=== PATIENT | male | born 1960 | race Caucasian/White ===

== ENCOUNTER 2019-11-27 01:13 | Emergency (ER) | payer BC, OTHER ==
[2019-11-27] MEDS ORDERED: KETOROLAC 60 MG/2 ML VIAL IM STA (01:52)
[2019-11-27] MEDS ORDERED: DEXAMETHASONE 10 MG/ML VIAL PO STA (01:52)
[2019-11-27] MEDS ORDERED: CHERRY SYRUP 10 ML UDC PO ONE (01:52)
--- NOTE | 2019-11-27 02:12 | ED Physician Documentation ---
PD HPI UPPER EXT INJURY - Stated complaint Stated Complaint: RT SHOULDER PX - Chief complaint Chief Complaint: General - History obtained from History obtained from: Patient, Family - History of Present Illness Location: Right, Shoulder Type of injury: Other (heavy lift) Where injury occurred: Work Timing - onset: Enter time (1600), Today Timing - duration: Hours Timing - details: Abrupt onset, Still present Improved by: Rest, Immobilization Worsened by: Moving, Palpating Associated symptoms: No: Weakness, Numbness, Tingling, Swelling Contributing factors: Work related. 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 He has had increasing pain since then and he has not had much relief with the use of ibuprofen. He has not had this happen to him previously and he denies any specific injury to the area today. He does do heavy lifting continuously and he did lift a heavy bag today which he carried with both arms even though his told him not to pick this up. He did not recall an injury at the time. He feels the pain is most centered at the edge of the shoulder. Review of Systems Constitutional: denies: Fever Eyes: denies: Decreased vision Ears: denies: Ear pain Nose: denies: Congestion Throat: denies: Sore throat Cardiac: denies: Chest pain / pressure, Palpitations Respiratory: denies: Dyspnea, Cough GI: denies: Abdominal Pain, Constipation, Diarrhea : denies: Dysuria PD PAST MEDICAL HISTORY - Past Medical History Past Medical History: No - Past Surgical History Past Surgical History: No - Present Medications Home Medications: Ambulatory Orders Medication Instructions Recorded Confirmed No Known Home Medications 11/27/19 11/27/19 - Allergies Allergies/Adverse Reactions: Allergies Allergy/AdvReac Type Severity Reaction Status Date / Time No Known Drug Allergies Allergy Verified 11/27/19 01:25 - Social History Does the pt smoke?: Yes Smoking Status: Current every day smoker Does the pt drink ETOH?: Yes Does the pt have substance abuse?: Yes Substance Use and Type: Marijuana - Immunizations Immunizations are current?: Yes - POLST Patient has POLST: No PD ED PE NORMAL - Vitals Vital signs reviewed: Yes (hypertnesive ) - General General: Alert and oriented X 3, Well developed/nourished, Other (appears to be in pain just trying to take his shirt off) - HEENT HEENT: Atraumatic, PERRL, EOMI - Respiratory Respiratory: No respiratory distress - Derm Derm: Normal color, Warm and dry, No rash - Extremities Extremities: No deformity, No edema, Other (There is specific point tenderness to the right shoulder over the biceps tendon and with any ROM testing. distal n/v is intact. ) - Neuro Neuro: Alert and oriented X 3, vinyl dipper 2-12 intact, No motor deficit, No sensory deficit, Normal speech Eye Opening: Spontaneous Motor: Obeys Commands Verbal: Oriented GCS Score: 15 - Psych Psych: Normal mood, Normal affect Results - Vitals Vitals: Vital Signs - 24 hr 11/27/19 11/27/19 01:23 02:58 Temperature 36.1 C L Heart Rate 70 69 Respiratory 20 18 Rate Blood Pressure 138/97 H 115/79 O2 Saturation 100 98 Oxygen O2 Source Room air - Rads (name of study) right shoulder Radiology: Prelim report reviewed (Impression: No acute findings.), EMP read indepedently (On my read I see a thin rim of calcification over the biceps tendon.), See rad report PD MEDICAL DECISION MAKING - ED course Complexity details: reviewed results, re-evaluated patient, considered differential, d/w patient, d/w family ED course: 59-year-old male with acute onset of severe right shoulder pain with any movement appears to have tenderness over the biceps tendon and I am able to see a slight rim of calcification over the biceps tendon and have diagnosed calcific tendinitis. He is administered dexamethasone 10 mg orally and 60 mg of Toradol and is placed into a sling. He is instructed to take the sling off several times per day to remove the arm in a range of motion and to follow-up with orthopedics as he may need further physical therapy or injection for treatment. Departure - Departure Disposition: 01 Home, Self Care Clinical Impression: Calcific tendonitis of right shoulder Condition: Stable Instructions: ED Tendinitis Calcific Follow-Up: Andrey Cui MD [Provider Admit Priv/Credential] -
[2019-11-27] MEDS ORDERED: HYDROcod/ACET 5/325 Prepack 4 PO STA (02:32)
[2019-11-27 02:59] VITALS: BP 115/79
--- NOTE | 2019-11-27 08:24 | XRAY Report ---
PROCEDURE: Shoulder 3 View RT INDICATIONS: shoulder joint pain TECHNIQUE: 3 views of the shoulder were acquired. COMPARISON: None. FINDINGS: Bones: No fractures or dislocations. No suspicious bony lesions. Mild to moderate acromioclavicula r joint and glenohumeral joint osteoarthritic changes are seen. Visualized ribs appear intact. Soft tissues: No suspicious soft tissue calcifications. IMPRESSION: Mild right shoulder joint osteoarthritis. No acute fracture or dislocation. No discrepancies. Reviewed by: Everett Sánchez MD on 11/27/2019 8:23 AM PDT Approved by: Everett Sánchez MD on 11/27/2019 8:23 AM PDT Station ID: [id number]
== END 2019-11-27 03:16 | disposition home or self-care (01) ==
LOC: ED 01:13
DX: M75.31 Calcific tendinitis of right shoulder (principal); F17.200 Nicotine dependence, unspecified, uncomplicated
CPT/HCPCS: 73030; 96372; 99283; 99284; A9270